=== PATIENT | female | born 1955 | race Caucasian/White ===

== ENCOUNTER → 2019-09-13 | Day surgery (SDC) | payer MEDICARE ==
--- NOTE | 2019-09-13 10:44 | MMO ---
RIGHT BREAST STEREOTACTIC BIOPSY: HISTORY: Right breast mass. COMPARISON: 09/03/2019 [facility] [place]. FINDINGS: Right breast stereotactic biopsy was performed. A total of twelve 10-gauge core biopsy samples were obtained. Post biopsy clip was placed. TECHNIQUE: Consent was obtained to perform a right breast stereotactic biopsy. The patient was placed in a pron e position on the stereotactic table. The patient's breast was evaluated, in the CC projection. The suspected area was identified. The skin was prepped and draped in a sterile fashion. 1% Lidocaine, buffered with sodium bicarbonate, was used for local anesthesia. Needle position was confirmed pre- and post-firing. Manually, the needle was advanced such that the trough was felt to be at the level of the lesion. A total of twelve 10-gauge core biopsy samples were obtained. Post biopsy clip was placed. Hemostasis was achieved with manual compression. SPECIMEN RADIOGRAPH: Breast tissue is present. POST PROCEDURE MAMMOGRAM: There are expected postsurgical changes. The biopsy clip appears to be slightly inferior and medial to the expected location of the lesion. The clip may have migrated versus patient position. Final p athologic diagnosis is pending. IMPRESSION: 1. Successful right breast stereotactic biopsy. Final pathologic diagnosis is pending. 2. Biopsy clip is slightly inferior and medial in the expected location which may be due to migratio n of the clip versus patient position. POS: OFF
== END ==
LOC: MAMMO 06:51
PROVIDERS: ATTEND Specialist
PROC: 0H9T0ZX Drainage of Right Breast, Open Approach, Diagnostic (ICD-10-PCS; principal; 2019-09-13)
DX: C50.411 Malignant neoplasm of upper-outer quadrant of right female breast (principal)
CPT/HCPCS: 19081; 76098; 88305; 88341; 88342